=== PATIENT | female | born 1995 | race Caucasian/White ===

== ENCOUNTER 2016-04-10 15:11 | Emergency (ER) | payer OTHER ==
--- NOTE | 2016-04-10 16:25 | ED CLINICAL REPORT ---
Clinical Report - Physicians/Mid Levels [facility] [address] [place] [address] 04/10/2016 15:13 Patient: ARUN JAVIER Time Seen: 16:00 Apr 10 2016. Arrived- By private vehicle. Historian- patient. HISTORY OF PRESENT ILLNESS Chief Complaint: PELVIC PAIN. 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 The symptoms are described as mild. The patient has had pelvic pain. No missed period(s), irregular periods or abnormal bleeding. Sexually active. Does not use control measures. (Gradual pain on right/ central over last 7 days, seen at [facility] with us, with multiple cyst, pain not controlled on tylenol/ motrin, has f/u with ethologist within next 7 days. Pt sexually active, last such about 1 mos prior, pt sexually active with both male/ female. LMP was mid february, she is irregular, had a neg upreg yesterday.). Denies current . REVIEW OF SYSTEMS No nausea, diarrhea, cough or skin rash. All systems otherwise negative, except as recorded above. PAST HISTORY Problems: Vomiting. Back Pain. Abdominal Pain. Lumbar Strain. Immunizations. LNMP - Last Normal Menstrual Period. Boarderline personality disorder . Depression. Anxiety Reaction. Endometriosis. Fibromyalgia. Additional Surgeries: Adenoidectomy. Appendectomy. Laparoscopy. Liposuction . Ovarian cyst. Sinus surgery . Tonsillectomy. Medications: SEROquel Oral. MetroNIDAZOLE Oral. Omeprazole Oral 40 mg, daily. Vitamin B-12 Oral. Vitamin D Oral. Allergies: Amoxicillin. Sodium Lauryl Sulfate. SOCIAL HISTORY History of drug use: marijuana. Not an IV drug user. ADDITIONAL NOTES The nursing notes have been reviewed. PHYSICAL EXAM Vital Signs: 04/10/2016 15:34 BP: 138/87. HR: 79. RR: 18. O2 saturation: 100%. Temp: 98.8 F. Pain level now: 6/10. Appearance: Alert. HEENT: Normal external inspection. Neck: Neck supple. No thyromegaly. CVS: Heart sounds normal. Rate normal. Rhythm normal. Respiratory: No respiratory distress. Breath sounds normal. No rales. Abdomen: Soft and nontender. Tenderness in the suprapubic area. The bowel sounds are not abnormal. : Bimanual exam normal. Mild uterine tenderness; left adnexal tenderness. No cervical motion tenderness. Skin: Skin warm. Normal skin color. Neuro: Oriented X 3. PROGRESS AND PROCEDURES Course of Care: [facility] records: from 04/09/2016 cbc: elevated wbc 11.7 (norm range 4.5-10. NO left shift. CMP, neg creactive protein 0.58, neg upreg US results: transabd/pelvic us: and endovaginal us 1. multiple small follicles in each ovary with both ovaries greater than 10mL in size, consistent with polycystic ovary morphology. 2. 2.1 cm slightly thick walled cyst on right side, most consistent with mature follicle. 3. Otherwise neg. Signed y DR. Darby 04/09/16 In the ER patient with no new pain. Reports no sudden changes of her pain over the last 5 days. Denies urgency or frequency, had workup including urinalysis, negative tests in the [facility] yesterday. Patient here in the ER is stable given pain control, has IMAGER follow-up. Patient is stable. Patient/family counseled. Disposition: Discharged. CLINICAL IMPRESSION Acute pelvic pain. Multiple ovarian cysts. INSTRUCTIONS Drink plenty of fluids. Prescription Medications: Hydrocodone/APAP 7.5mg / 325mg: take 1 orally every 6 hours as needed for pain. Dispense twenty (20). No refill. Follow-up: Follow up with a specialist. (Electronically signed by Vicky Garces P.A.-C 04/10/2016 16:38)
--- NOTE | 2016-04-10 16:25 | ED ORDER SUMMARY ---
..... Patient: ARUN JAVIER OrderSheet [facility] VisitID: [id number] [address] [place] [address] 20y, F Registration Date/Time: 04/10/2016 ORDER SHEET Weight: 104.3 kg (stated) Allergies: Amoxicillin, Sodium Lauryl Sulfate GENERAL ORDERS: MEDICATION ORDERS: Hydrocodone-APAP PO 10/650 mg (NOW, HIGH ALERT MEDICATION) (15:54 04/10/2016 Lawrence Inman) (Ack 16:10 Carrie R.N.) (16:12 Carrie R.N.) IV FLUIDS: ORDER SHEET NOTES: [Electronically signed by Yun Talbot R.N. (16:34 04/10/2016)] [Electronically signed by Vicky Garces P.A.-C (16:38 04/10/2016)] [Electronically locked/signed by Yun Talbot R.N. (16:34 04/10/2016)]
--- NOTE | 2016-04-10 16:25 | ED CLINICAL REPORT ---
Clinical Report - Physicians/Mid Levels [facility] [address] [place] [address] 04/10/2016 15:13 Patient: ARUN JAVIER Time Seen: 16:00 Apr 10 2016. Arrived- By private vehicle. Historian- patient. HISTORY OF PRESENT ILLNESS Chief Complaint: PELVIC PAIN. 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 The symptoms are described as mild. The patient has had pelvic pain. No missed period(s), irregular periods or abnormal bleeding. Sexually active. Does not use control measures. (Gradual pain on right/ central over last 7 days, seen at [facility] with us, with multiple cyst, pain not controlled on tylenol/ motrin, has f/u with pick up man within next 7 days. Pt sexually active, last such about 1 mos prior, pt sexually active with both male/ female. LMP was mid february, she is irregular, had a neg upreg yesterday.). Denies current . REVIEW OF SYSTEMS No nausea, diarrhea, cough or skin rash. All systems otherwise negative, except as recorded above. PAST HISTORY Problems: Vomiting. Back Pain. Abdominal Pain. Lumbar Strain. Immunizations. LNMP - Last Normal Menstrual Period. Boarderline personality disorder . Depression. Anxiety Reaction. Endometriosis. Fibromyalgia. Additional Surgeries: Adenoidectomy. Appendectomy. Laparoscopy. Liposuction . Ovarian cyst. Sinus surgery . Tonsillectomy. Medications: SEROquel Oral. MetroNIDAZOLE Oral. Omeprazole Oral 40 mg, daily. Vitamin B-12 Oral. Vitamin D Oral. Allergies: Amoxicillin. Sodium Lauryl Sulfate. SOCIAL HISTORY History of drug use: marijuana. Not an IV drug user. ADDITIONAL NOTES The nursing notes have been reviewed. PHYSICAL EXAM Vital Signs: 04/10/2016 15:34 BP: 138/87. HR: 79. RR: 18. O2 saturation: 100%. Temp: 98.8 F. Pain level now: 6/10. Appearance: Alert. HEENT: Normal external inspection. Neck: Neck supple. No thyromegaly. CVS: Heart sounds normal. Rate normal. Rhythm normal. Respiratory: No respiratory distress. Breath sounds normal. No rales. Abdomen: Soft and nontender. Tenderness in the suprapubic area. The bowel sounds are not abnormal. : Bimanual exam normal. Mild uterine tenderness; left adnexal tenderness. No cervical motion tenderness. Skin: Skin warm. Normal skin color. Neuro: Oriented X 3. PROGRESS AND PROCEDURES Course of Care: [facility] records: from 04/09/2016 cbc: elevated wbc 11.7 (norm range 4.5-10. NO left shift. CMP, neg creactive protein 0.58, neg upreg US results: transabd/pelvic us: and endovaginal us 1. multiple small follicles in each ovary with both ovaries greater than 10mL in size, consistent with polycystic ovary morphology. 2. 2.1 cm slightly thick walled cyst on right side, most consistent with mature follicle. 3. Otherwise neg. Signed y DR. Darby 04/09/16 In the ER patient with no new pain. Reports no sudden changes of her pain over the last 5 days. Denies urgency or frequency, had workup including urinalysis, negative tests in the [facility] yesterday. 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 Patient is stable. Patient/family counseled. Disposition: Discharged. CLINICAL IMPRESSION Acute pelvic pain. Multiple ovarian cysts. INSTRUCTIONS Drink plenty of fluids. Prescription Medications: Hydrocodone/APAP 7.5mg / 325mg: take 1 orally every 6 hours as needed for pain. Dispense twenty (20). No refill. Follow-up: Follow up with a specialist. (Electronically signed by Vicky Garces P.A.-C 04/10/2016 16:38)
--- NOTE | 2016-04-10 16:25 | ED NURSING NOTES ---
Clinical Report - Nurses [facility] [address] [place] [address] 04/10/2016 15:13 Patient: ARUN JAVIER TRIAGE Triage time 1534 PM. Acuity: LEVEL 4. Chief Complaint: PELVIC PAIN. Alert. No acute distress. SEPSIS SCREEN: Sepsis Screen. Negative (no infection suspected/documented). ANSHUL COMA SCORE: [place] Coma Scale: 15- eyes open spontaneously (4); best verbal response- oriented x 4 (5); best motor response- obeys commands (6). --15:47 Yun Talbot R.N. 15:34 PM late entry -. --15:57 Yun Talbot R.N. 15:34 04/10/16. BP: 138/87 (regular adult cuff) taken on the left arm, via an automated monitor, while lying. HR: 79. RR: 18. O2 saturation: 100% on room air. Temp: 98.8 F (oral). Pain level now: 6/10. Additional comments: pelvic pain. --15:57 Yun Talbot R.N. 15:34 PM late entry -. --16:01 Yun Talbot R.N. Weight: 104.3 kg stated. Height/Length: 68 inches Per Patient. BMI: 35. --15:38 Yun Talbot R.N. Medications MetroNIDAZOLE Oral. Omeprazole Oral 40 mg, daily. Vitamin B-12 Oral. Vitamin D Oral. --15:36 Yun Talbot R.N. SEROquel Oral. --15:37 Yun Talbot R.N. Medication/allergy information source: the patient. --15:47 Yun Talbot R.N. Allergies Amoxicillin. Sodium Lauryl Sulfate. --15:36 Yun Talbot R.N. History Arrived by private vehicle. Historian: patient. Accompanied by family. Primary physician ([facility]). ( Pt states going to [facility] [place] yesterday for pain pelvic area down to hips, ultrasound was performed as per pt and was told that she has multiple cyst.). The patient has had abdominal pain. No spotting, hematuria, abnormal bleeding, flank pain or fever. Treatment CLINICAL MICROBIOLOGIST: Took Tylenol. PAST MEDICAL HX: Endometriosis. Immunizations: up-to-date. Last normal menstrual period- Mar. SOCIAL HX: History of weekly drug use: marijuana. No infectious disease exposure. ABUSE ASSESSMENT: No report of abuse. SELF HARM ASSESSMENT: A self harm assessment was performed. The patient answered "no" to the question "Do you have thoughts of harming or killing yourself?" and "Have you recently had thoughts about harming or killing others?". FALL RISK ASSESSMENT: Fall risk assessment completed. No fall risk identified. NUTRITIONAL RISK ASSESSMENT: The nutritional risk assessment revealed no deficiencies. FUNCTIONAL ASSESSMENT: Functional assessment: no impairments noted. LEARNING NEEDS ASSESSMENT: The learning needs assessment revealed no barriers. SKIN INTEGRITY ASSESSMENT: Skin integrity risk assessment completed. No skin integrity risk identified. --15:47 Yun Talbot R.N. PAST MEDICAL HX: Sexual history - sexually active, engages in unprotected sex and heterosexual. No contraception. --16:01 Yun Talbot R.N. PROBLEMS: Vomiting. Back Pain. Abdominal Pain. Lumbar Strain. Immunizations. LNMP - Last Normal Menstrual Period. Boarderline personality disorder . Depression. Anxiety Reaction. Endometriosis. Fibromyalgia. --15:37 Yun Talbot R.N. ADDITIONAL SURGERIES: Adenoidectomy. Appendectomy. Laparoscopy. Liposuction . Ovarian cyst. Sinus surgery . Tonsillectomy. --15:37 Yun Talbot R.N. Interventions ID band on patient. --15:47 Yun Talbot R.N. PHYSICAL ASSESSMENT 15:34 late entry - PM. GENERAL / NEURO / PSYCH: Alert. Oriented X 4. Appears in no acute distress. HEENT: Mucous membranes are pink. RESPIRATORY: Respirations not labored. Breath sounds within normal limits. CVS: Capillary refill less than 2 seconds. GI / : Abdomen soft and nontender. Bowel sounds within normal limits. Vaginal bleeding. Vaginal discharge. SKIN: Skin is warm and dry. --15:57 Yun Talbot R.N. Ambulatory to room. --15:57 Yun Talbot R.N. NURSING PROGRESS NOTES The initial plan of care for this patient has been created This plan of care was discussed with the patient. Patient gowned. Reassurance given. PELVIC EXAM: Pelvic exam performed by KYLEIGH Enrique). Assisted by one nurse. Status post-procedure: she was stable and no complications were noted. Total time of assist / procedure: 15 minutes. Two patient identifiers checked. Call light placed in reach. Side rails up x 1. Bed placed in lowest position. Brakes of bed on. Brakes of chair on. --15:58 Yun Talbot R.N. 15:58 04/10/16. BP: 109/53 (regular adult cuff) taken on the left arm, via an automated monitor, while lying. HR: 78. RR: 18. O2 saturation: 99% on room air. Pain level now: 08/25. --15:59 Yun Talbot R.N. 16:12 04/10/2016 Hydrocodone-APAP (Hydrocodone-Acetaminophen) PO 10/650 mg Tablets 2 tab given. Allergies verified, confirmed 5 rights and sedative warning given to the patient. --16:12 Yun Talbot R.N. 16:28 04/10/2016 Hydrocodone-APAP PO Response: no adverse reaction symptoms have improved. --16:33 Yun Talbot R.N. DISPOSITION / DISCHARGE Departure time: 1633 PM. Condition at departure: stable. The goals identified in the patient's plan of care were met. No learning barriers present. Discharge instructions provided and reviewed with the patient. Reviewed medication(s) side effects, precautions, dosing and course information. Prescription(s) given to the patient. Reviewed need for increased fluid intake. Activity restrictions (rest) reviewed. Patient verbalized understanding. Written instructions provided in Malay. No treatment instructions or referrals given to the patient. The patient was discharged by the physician pastrycook's assistant. She was discharged home and accompanied by assurance associate. She left the Emergency Department ambulatory and via private vehicle. Patient driving. FALL RISK ASSESSMENT: Fall risk assessment completed. No fall risk identified. ANSHUL COMA SCORE: Anshul Coma Scale: 15- eyes open spontaneously (4); best verbal response- oriented x 4 (5); best motor response- obeys commands (6). --16:33 Yun Talbot R.N. 16:30 04/10/16. BP: 109/66 (regular adult cuff) taken on the left arm, via an automated monitor, while lying. HR: 67. RR: 18. O2 saturation: 99% on room air. Temp: 98.8 F (oral). Pain level now: 08/25. --16:33 Yun Talbot R.N. Locked/Released at 04/10/2016 16:34 by Yun Talbot R.N.
--- NOTE | 2016-04-10 16:25 | ED NURSING NOTES ---
Clinical Report - Nurses [facility] [address] [place] [address] 04/10/2016 15:13 Patient: ARUN JAVIER TRIAGE Triage time 1534 PM. Acuity: LEVEL 4. Chief Complaint: PELVIC PAIN. Alert. No acute distress. SEPSIS SCREEN: Sepsis Screen. Negative (no infection suspected/documented). ANSHUL COMA SCORE: Nelson Coma Scale: 15- eyes open spontaneously (4); best verbal response- oriented x 4 (5); best motor response- obeys commands (6). --15:47 Yun Talbot R.N. 15:34 PM late entry -. --15:57 Yun Talbot R.N. 15:34 04/10/16. BP: 138/87 (regular adult cuff) taken on the left arm, via an automated monitor, while lying. HR: 79. RR: 18. O2 saturation: 100% on room air. Temp: 98.8 F (oral). Pain level now: 6/10. Additional comments: pelvic pain. --15:57 Yun Talbot R.N. 15:34 PM late entry -. --16:01 Yun Talbot R.N. Weight: 104.3 kg stated. Height/Length: 68 inches Per Patient. BMI: 35. --15:38 Yun Talbot R.N. Medications MetroNIDAZOLE Oral. Omeprazole Oral 40 mg, daily. Vitamin B-12 Oral. Vitamin D Oral. --15:36 Yun Talbot R.N. SEROquel Oral. --15:37 Yun Talbot R.N. Medication/allergy information source: the patient. --15:47 Yun Talbot R.N. Allergies Amoxicillin. Sodium Lauryl Sulfate. --15:36 Yun Talbot R.N. History Arrived by private vehicle. Historian: patient. Accompanied by family. Primary physician ([facility]). ( Pt states going to [facility] yesterday for pain pelvic area down to hips, ultrasound was performed as per pt and was told that she has multiple cyst.). The patient has had abdominal pain. No spotting, hematuria, abnormal bleeding, flank pain or fever. Treatment STATE GAME WARDEN: Took Tylenol. PAST MEDICAL HX: Endometriosis. Immunizations: up-to-date. Last normal menstrual period- Mar. SOCIAL HX: History of weekly drug use: marijuana. No infectious disease exposure. ABUSE ASSESSMENT: No report of abuse. SELF HARM ASSESSMENT: A self harm assessment was performed. The patient answered "no" to the question "Do you have thoughts of harming or killing yourself?" and "Have you recently had thoughts about harming or killing others?". FALL RISK ASSESSMENT: Fall risk assessment completed. No fall risk identified. NUTRITIONAL RISK ASSESSMENT: The nutritional risk assessment revealed no deficiencies. FUNCTIONAL ASSESSMENT: Functional assessment: no impairments noted. LEARNING NEEDS ASSESSMENT: The learning needs assessment revealed no barriers. SKIN INTEGRITY ASSESSMENT: Skin integrity risk assessment completed. No skin integrity risk identified. --15:47 Yun Talbot R.N. PAST MEDICAL HX: Sexual history - sexually active, engages in unprotected sex and heterosexual. No contraception. --16:01 Yun Talbot R.N. PROBLEMS: Vomiting. Back Pain. Abdominal Pain. Lumbar Strain. Immunizations. LNMP - Last Normal Menstrual Period. Boarderline personality disorder . Depression. Anxiety Reaction. Endometriosis. Fibromyalgia. --15:37 uYn Talbot R.N. ADDITIONAL SURGERIES: Adenoidectomy. Appendectomy. Laparoscopy. Liposuction . Ovarian cyst. Sinus surgery . Tonsillectomy. --15:37 Yun Talbot R.N. Interventions ID band on patient. --15:47 Yun Talbot R.N. PHYSICAL ASSESSMENT 15:34 late entry - PM. GENERAL / NEURO / PSYCH: Alert. Oriented X 4. Appears in no acute distress. HEENT: Mucous membranes are pink. RESPIRATORY: Respirations not labored. Breath sounds within normal limits. CVS: Capillary refill less than 2 seconds. GI / : Abdomen soft and nontender. Bowel sounds within normal limits. Vaginal bleeding. Vaginal discharge. SKIN: Skin is warm and dry. --15:57 Yun Talbot R.N. Ambulatory to room. --15:57 Yun Talbot R.N. NURSING PROGRESS NOTES The initial plan of care for this patient has been created This plan of care was discussed with the patient. Patient gowned. Reassurance given. PELVIC EXAM: Pelvic exam performed by KYLEIGH Enrique). Assisted by one nurse. Status post-procedure: she was stable and no complications were noted. Total time of assist / procedure: 15 minutes. Two patient identifiers checked. Call light placed in reach. Side rails up x 1. Bed placed in lowest position. Brakes of bed on. Brakes of chair on. --15:58 Yun Talbot R.N. 15:58 04/10/16. BP: 109/53 (regular adult cuff) taken on the left arm, via an automated monitor, while lying. HR: 78. RR: 18. O2 saturation: 99% on room air. Pain level now: 08/25. --15:59 Yun Talbot R.N. 16:12 04/10/2016 Hydrocodone-APAP (Hydrocodone-Acetaminophen) PO 10/650 mg Tablets 2 tab given. Allergies verified, confirmed 5 rights and sedative warning given to the patient. --16:12 Yun Talbot R.N. 16:28 04/10/2016 Hydrocodone-APAP PO Response: no adverse reaction symptoms have improved. --16:33 Yun Talbot R.N. DISPOSITION / DISCHARGE Departure time: 1633 PM. Condition at departure: stable. The goals identified in the patient's plan of care were met. No learning barriers present. Discharge instructions provided and reviewed with the patient. Reviewed medication(s) side effects, precautions, dosing and course information. Prescription(s) given to the patient. Reviewed need for increased fluid intake. Activity restrictions (rest) reviewed. Patient verbalized understanding. Written instructions provided in Indonesian. No treatment instructions or referrals given to the patient. The patient was discharged by the physician blood bank assistant. She was discharged home and accompanied by haul driver. She left the Emergency Department ambulatory and via private vehicle. Patient driving. FALL RISK ASSESSMENT: Fall risk assessment completed. No fall risk identified. ANSHUL COMA SCORE: Anshul Coma Scale: 15- eyes open spontaneously (4); best verbal response- oriented x 4 (5); best motor response- obeys commands (6). --16:33 Yun Talbot R.N. 16:30 04/10/16. BP: 109/66 (regular adult cuff) taken on the left arm, via an automated monitor, while lying. HR: 67. RR: 18. O2 saturation: 99% on room air. Temp: 98.8 F (oral). Pain level now: 08/25. --16:33 Yun Talbot R.N. Locked/Released at 04/10/2016 16:34 by Yun Talbot R.N.
--- NOTE | 2016-04-10 16:25 | ED ORDER SUMMARY ---
..... Patient: ARUN JAVIER OrderSheet [facility] VisitID: [id number] [address] [place] [address] 20y, F Registration Date/Time: 04/10/2016 ORDER SHEET Weight: 104.3 kg (stated) Allergies: Amoxicillin, Sodium Lauryl Sulfate GENERAL ORDERS: MEDICATION ORDERS: Hydrocodone-APAP PO 10/650 mg (NOW, HIGH ALERT MEDICATION) (15:54 04/10/2016 Lawrence Inman) (Ack 16:10 Carrie R.N.) (16:12 Carrie R.N.) IV FLUIDS: ORDER SHEET NOTES: [Electronically signed by Yun Tlabot R.N. (16:34 04/10/2016)] [Electronically signed by Vicky Garces P.A.-C (16:38 04/10/2016)] [Electronically locked/signed by Yun Talbot R.N. (16:34 04/10/2016)]
--- NOTE | 2016-04-10 16:38 | ED MED RECONCILIATION SUMMARY ---
Patient: ARUN JAVIER Medication Reconciliation Report [facility] VisitID: [id number] [address] [place] [address] 20y, F Registration Date/Time: 04/10/2016 Weight: 104.3 kg Height/Length: 68 in. BMI: 35.0 ALLERGIES: Amoxicillin, Sodium Lauryl Sulfate The patient's Home Medications are listed below: THE FOLLOWING MEDICATIONS NEED TO BE RECONCILED: MetroNIDAZOLE Oral Omeprazole Oral 40 mg, daily SEROquel Oral Vitamin B-12 Oral Vitamin D Oral The source(s) of the original Home Medication information: patient The following Medications were given to the patient in the Emergency Department: Hydrocodone-APAP [PO] PO 2 tab, administered: 04/10/2016 4:12:00 PM The following Medications were prescribed to the patient: Hydrocodone/APAP 7.5mg / 325mg: take 1 orally every 6 hours as needed for pain. Dispense twenty (20). No refill. -- Vicky Garces P.ASun
--- NOTE | 2016-04-10 16:38 | ED MAR SUMMARY ---
..... Medication Administration Record [facility] [address] [place] [address] Patient: ARUN JAVIER Visit ID: [id number] 20y, F Weight: 104.3 kg Height/Length: 68 in BMI: 35 ALLERGIES: Amoxicillin, Sodium Lauryl Sulfate Given 16:12 04/10/2016 Yun Talbot R.N. Medication Administered: HYDROCODONE-APAP [PO] (HYDROCODONE-ACETAMINOPHEN), Dose: 2 tab 10/650 mg Tablets PO. Medication Ordered: Hydrocodone-APAP PO 10/650 mg (NOW, HIGH ALERT MEDICATION).
--- NOTE | 2016-04-10 16:38 | ED MAR SUMMARY ---
..... Medication Administration Record [facility] [address] [place] [address] Patient: ARUN JAVIER Visit ID: [id number] 20y, F Weight: 104.3 kg Height/Length: 68 in BMI: 35 ALLERGIES: Amoxicillin, Sodium Lauryl Sulfate Given 16:12 04/10/2016 Yun Talbot R.N. Medication Administered: HYDROCODONE-APAP [PO] (HYDROCODONE-ACETAMINOPHEN), Dose: 2 tab 10/650 mg Tablets PO. Medication Ordered: Hydrocodone-APAP PO 10/650 mg (NOW, HIGH ALERT MEDICATION).
--- NOTE | 2016-04-10 16:38 | ED DISCHARGE INSTRUCTIONS ---
Patient: ARUN JAVIER General Instructions [facility] VisitID: [id number] [place] [address] 20y, F Registration Date/Time: 04/10/2016 Acute pelvic pain. Multiple ovarian cysts. INSTRUCTIONS Drink plenty of fluids. Prescription Medications: Hydrocodone/APAP 7.5mg / 325mg: take 1 orally every 6 hours as needed for pain. Dispense twenty (20). No refill. Follow-up: Follow up with a specialist. ADDITIONAL INFORMATION Ovarian Cyst The ovary is a small organ located on each side of the uterus. During each menstrual cycle a tiny egg sac forms in the ovary. If the egg is released but does not occur, this sac usually dissolves. Sometimes, the sac may fill with fluid. It then enlarges into a painful cyst. Usually the cyst will rupture or shrink on its own. In either case, the pain gradually goes away over the next 1-3 days. If the cyst does not shrink or rupture, it may cause continued pain. Home Care: Rest in bed and avoid heavy exertion until you are feeling better. Heat to the lower abdomen usually helps (heating pad or hot packs -- a small towel soaked in hot water). You may use acetaminophen (Tylenol) or ibuprofen (Motrin, Advil) to control pain, unless another pain medicine was prescribed. [NOTE: If you have chronic liver or kidney disease or ever had a stomach ulcer or GI bleeding, talk with your doctor before using these medicines.] Follow Up: See your doctor within the next 2-3 days if your pain doesnt improve. Otherwise, follow up with your doctor after your next period or as directed by our staff. Get Prompt Medical Attention if any of the following occur: Pain worsens or fails to respond to the above measures Fever of 100.4F (38C) or higher, or as directed by your healthcare provider Heavy vaginal bleeding (soaking one pad an hour for three hours) You feel weak or dizzy Fainting Passage of a pink or melchor tissue with menstrual bleeding Hydrocodone Bitartrate, Acetaminophen Oral tablet What is this medicine? ACETAMINOPHEN; HYDROCODONE (a set a BLAYNE dilma fen; anai droe KOE done) is a pain reliever. It is used to treat mild to moderate pain. How should I use this medicine? Take this medicine by mouth. Swallow it with a full glass of water. Follow the directions on the prescription label. If the medicine upsets your stomach, take the medicine with food or milk. Do not take more than you are told to take. Talk to your business objects architect regarding the use of this medicine in children. This medicine is not approved for use in children. What side effects may I notice from receiving this medicine? Side effects that you should report to your doctor or health residential child care counselor as soon as possible: allergic reactions like skin rash, itching or hives, swelling of the face, lips, or tongue breathing problems confusion feeling faint or lightheaded, falls stomach pain yellowing of the eyes or skin Side effects that usually do not require medical attention (report to your doctor or health residential child care counselor if they continue or are bothersome): nausea, vomiting stomach upset What may interact with this medicine? alcohol antihistamines isoniazid medicines for depression, anxiety, or psychotic disturbances medicines for sleep muscle relaxants naltrexone narcotic medicines (opiates) for pain phenobarbital ritonavir tramadol What if I miss a dose? If you miss a dose, take it as soon as you can. If it is almost time for your next dose, take only that dose. Do not take double or extra doses. Where should I keep my medicine? Keep out of the reach of children. This medicine can be abused. Keep your medicine in a safe place to protect it from theft. Do not share this medicine with anyone. Selling or giving away this medicine is dangerous and against the law. Store at room temperature between 15 and 30 degrees C (59 and 86 degrees F). Protect from light. Keep container tightly closed. Throw away any unused medicine after the expiration date. Discard unused medicine and used packaging carefully. Pets and children can be harmed if they find used or lost packages. What should I tell my health care provider before I take this medicine? They need to know if you have any of these conditions: brain tumor Crohn's disease, inflammatory bowel disease, or ulcerative colitis drink more than 3 alcohol-containing drinks per day drug abuse or addiction head injury heart or circulation problems kidney disease or problems going to the bathroom liver disease lung disease, asthma, or breathing problems an unusual or allergic reaction to acetaminophen, hydrocodone, other opioid analgesics, other medicines, foods, dyes, or preservatives or trying to get breast-feeding What should I watch for while using this medicine? Tell your doctor or health residential child care counselor if your pain does not go away, if it gets worse, or if you have new or a different type of pain. You may develop tolerance to the medicine. Tolerance means that you will need a higher dose of the medicine for pain relief. Tolerance is normal and is expected if you take the medicine for a long time. Do not suddenly stop taking your medicine because you may develop a severe reaction. Your body becomes used to the medicine. This does NOT mean you are addicted. Addiction is a behavior related to getting and using a drug for a non-medical reason. If you have pain, you have a medical reason to take pain medicine. Your doctor will tell you how much medicine to take. If your doctor wants you to stop the medicine, the dose will be slowly lowered over time to avoid any side effects. You may get drowsy or dizzy when you first start taking the medicine or change doses. Do not drive, use machinery, or do anything that may be dangerous until you know how the medicine affects you. Stand or sit up slowly. There are different types of narcotic medicines (opiates) for pain. If you take more than one type at the same time, you may have more side effects. Give your health care provider a list of all medicines you use. Your doctor will tell you how much medicine to take. Do not take more medicine than directed. Call emergency for help if you have problems breathing. The medicine will cause constipation. Try to have a bowel movement at least every 2 to 3 days. If you do not have a bowel movement for 3 days, call your doctor or health residential child care counselor. Too much acetaminophen can be very dangerous. Do not take Tylenol (acetaminophen) or medicines that contain acetaminophen with this medicine. Many non-prescription medicines contain acetaminophen. Always read the labels carefully. You have been given the following additional information: Ovarian Cyst Hydrocodone Bitartrate, Acetaminophen Oral tablet (Electronically signed by Vicky Garces P.A.-C 04/10/2016 16:38)
--- NOTE | 2016-04-10 16:38 | ED MED RECONCILIATION SUMMARY ---
Patient: ARUN JAVIER Medication Reconciliation Report [facility] VisitID: [id number] [address] [place] [address] 20y, F Registration Date/Time: 04/10/2016 Weight: 104.3 kg Height/Length: 68 in. BMI: 35.0 ALLERGIES: Amoxicillin, Sodium Lauryl Sulfate The patient's Home Medications are listed below: THE FOLLOWING MEDICATIONS NEED TO BE RECONCILED: MetroNIDAZOLE Oral Omeprazole Oral 40 mg, daily SEROquel Oral Vitamin B-12 Oral Vitamin D Oral The source(s) of the original Home Medication information: patient The following Medications were given to the patient in the Emergency Department: Hydrocodone-APAP [PO] PO 2 tab, administered: 04/10/2016 4:12:00 PM The following Medications were prescribed to the patient: Hydrocodone/APAP 7.5mg / 325mg: take 1 orally every 6 hours as needed for pain. Dispense twenty (20). No refill. -- Vicky Garces P.ASun
--- NOTE | 2016-04-10 16:38 | ED DISCHARGE INSTRUCTIONS ---
Patient: ARUN JAVIER General Instructions [facility] VisitID: [id number] [place] [address] 20y, F Registration Date/Time: 04/10/2016 Acute pelvic pain. Multiple ovarian cysts. INSTRUCTIONS Drink plenty of fluids. Prescription Medications: Hydrocodone/APAP 7.5mg / 325mg: take 1 orally every 6 hours as needed for pain. Dispense twenty (20). No refill. Follow-up: Follow up with a specialist. ADDITIONAL INFORMATION Ovarian Cyst The ovary is a small organ located on each side of the uterus. During each menstrual cycle a tiny egg sac forms in the ovary. If the egg is released but does not occur, this sac usually dissolves. Sometimes, the sac may fill with fluid. It then enlarges into a painful cyst. Usually the cyst will rupture or shrink on its own. In either case, the pain gradually goes away over the next 1-3 days. If the cyst does not shrink or rupture, it may cause continued pain. Home Care: Rest in bed and avoid heavy exertion until you are feeling better. Heat to the lower abdomen usually helps (heating pad or hot packs -- a small towel soaked in hot water). You may use acetaminophen (Tylenol) or ibuprofen (Motrin, Advil) to control pain, unless another pain medicine was prescribed. [NOTE: If you have chronic liver or kidney disease or ever had a stomach ulcer or GI bleeding, talk with your doctor before using these medicines.] Follow Up: See your doctor within the next 2-3 days if your pain doesnt improve. Otherwise, follow up with your doctor after your next period or as directed by our staff. Get Prompt Medical Attention if any of the following occur: Pain worsens or fails to respond to the above measures Fever of 100.4F (38C) or higher, or as directed by your healthcare provider Heavy vaginal bleeding (soaking one pad an hour for three hours) You feel weak or dizzy Fainting Passage of a pink or melchor tissue with menstrual bleeding Hydrocodone Bitartrate, Acetaminophen Oral tablet What is this medicine? ACETAMINOPHEN; HYDROCODONE (a set a BLAYNE dilma fen; anai droe KOE done) is a pain reliever. It is used to treat mild to moderate pain. How should I use this medicine? Take this medicine by mouth. Swallow it with a full glass of water. Follow the directions on the prescription label. If the medicine upsets your stomach, take the medicine with food or milk. Do not take more than you are told to take. Talk to your uniforms sales representative regarding the use of this medicine in children. This medicine is not approved for use in children. What side effects may I notice from receiving this medicine? Side effects that you should report to your doctor or health senior resident care director as soon as possible: allergic reactions like skin rash, itching or hives, swelling of the face, lips, or tongue breathing problems confusion feeling faint or lightheaded, falls stomach pain yellowing of the eyes or skin Side effects that usually do not require medical attention (report to your doctor or health senior resident care director if they continue or are bothersome): nausea, vomiting stomach upset What may interact with this medicine? alcohol antihistamines isoniazid medicines for depression, anxiety, or psychotic disturbances medicines for sleep muscle relaxants naltrexone narcotic medicines (opiates) for pain phenobarbital ritonavir tramadol What if I miss a dose? If you miss a dose, take it as soon as you can. If it is almost time for your next dose, take only that dose. Do not take double or extra doses. Where should I keep my medicine? Keep out of the reach of children. This medicine can be abused. Keep your medicine in a safe place to protect it from theft. Do not share this medicine with anyone. Selling or giving away this medicine is dangerous and against the law. Store at room temperature between 15 and 30 degrees C (59 and 86 degrees F). Protect from light. Keep container tightly closed. Throw away any unused medicine after the expiration date. Discard unused medicine and used packaging carefully. Pets and children can be harmed if they find used or lost packages. What should I tell my health care provider before I take this medicine? They need to know if you have any of these conditions: brain tumor Crohn's disease, inflammatory bowel disease, or ulcerative colitis drink more than 3 alcohol-containing drinks per day drug abuse or addiction head injury heart or circulation problems kidney disease or problems going to the bathroom liver disease lung disease, asthma, or breathing problems an unusual or allergic reaction to acetaminophen, hydrocodone, other opioid analgesics, other medicines, foods, dyes, or preservatives or trying to get breast-feeding What should I watch for while using this medicine? Tell your doctor or health senior resident care director if your pain does not go away, if it gets worse, or if you have new or a different type of pain. You may develop tolerance to the medicine. Tolerance means that you will need a higher dose of the medicine for pain relief. Tolerance is normal and is expected if you take the medicine for a long time. Do not suddenly stop taking your medicine because you may develop a severe reaction. Your body becomes used to the medicine. This does NOT mean you are addicted. Addiction is a behavior related to getting and using a drug for a non-medical reason. If you have pain, you have a medical reason to take pain medicine. Your doctor will tell you how much medicine to take. If your doctor wants you to stop the medicine, the dose will be slowly lowered over time to avoid any side effects. You may get drowsy or dizzy when you first start taking the medicine or change doses. Do not drive, use machinery, or do anything that may be dangerous until you know how the medicine affects you. Stand or sit up slowly. There are different types of narcotic medicines (opiates) for pain. If you take more than one type at the same time, you may have more side effects. Give your health care provider a list of all medicines you use. Your doctor will tell you how much medicine to take. Do not take more medicine than directed. Call emergency for help if you have problems breathing. The medicine will cause constipation. Try to have a bowel movement at least every 2 to 3 days. If you do not have a bowel movement for 3 days, call your doctor or health senior resident care director. Too much acetaminophen can be very dangerous. Do not take Tylenol (acetaminophen) or medicines that contain acetaminophen with this medicine. Many non-prescription medicines contain acetaminophen. Always read the labels carefully. You have been given the following additional information: Ovarian Cyst Hydrocodone Bitartrate, Acetaminophen Oral tablet (Electronically signed by Vicky Garces P.A.-C 04/10/2016 16:38)
== END 2016-04-10 16:35 | disposition home or self-care (01) ==
LOC: ED SRH 15:11
DX: N83.201 Unspecified ovarian cyst, right side (principal); N83.202 Unspecified ovarian cyst, left side; N80.9 Endometriosis, unspecified; Z79.899 Other long term (current) drug therapy; Z88.1 Allergy status to other antibiotic agents; Z88.8 Allergy status to other drugs, medicaments and biological substances